=== PATIENT | male | born 1975 | race Caucasian/White ===

== ENCOUNTER 2022-01-04 07:52 | Outpatient (CLI) | payer OTHER, SELFPAY | END 2022-01-04 07:53 | disposition home or self-care (01) | LOC: AMB 01-22 08:47 | PROVIDERS: PCP Family Medicine; Visit Provider Internal Medicine | DX: S99.911A Unspecified injury of right ankle, initial encounter (principal); W18.2XXA Fall in (into) shower or empty bathtub, initial encounter; Y93.E1 Activity, personal bathing and showering; Y92.002 Bathroom of unspecified non-institutional (private) residence as the place of occurrence of the external cause | CPT/HCPCS: A0425; A0427 ==

== ENCOUNTER 2022-01-04 08:51 | Day surgery (SDC) | payer OTHER, SELFPAY ==
[2022-01-04] VITALS (40 sets, daily range): BP systolic 118–152; BP diastolic 66–99; PULSE 73–105; RESP 16–18; TEMP 36.3–37.2; O2SAT 92–99
--- NOTE | 2022-01-04 09:15 | CRLHL7_ITS ---
For Patients: As a result of the Century Cures Act, medical imaging exams and procedure reports are released immediately into your electronic medical record. You may view this report before your referring provider. If you have questions, please contact your health care provider. INDICATION: Fell this morning. TECHNIQUE: AP and lateral views of the right ankle. COMPARISON: None. FINDINGS: Bimalleolar fracture dislocation. Oblique fracture of the distal fibula and fracture of the posterior malleolus. Medial malleolus apparently intact. Talus dislocated posterior laterally and malleolar fragments displaced along with the talus. IMPRESSION: Bimalleolar fracture dislocation, as above. Dictated by Simone Thrasher MD @ 01/04/2022 10:08:41 AM (Electronically Signed)
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
[2022-01-04] MEDS: 0.9 % SODIUM CHLORIDE 1000 ml 1,000 ML IV (09:31)
[2022-01-04] MEDS: HYDROmorphone 0.5 mg/0.5 ml inj IVP (09:31)
[2022-01-04] MEDS: ONDANSETRON 2 MG/ML inj 4 MG IVP (09:31)
[2022-01-04] MEDS: MORPHINE 10 MG/ML inj 4 MG IVP (10:18)
[2022-01-04] MEDS: fentaNYL 100 MCG/2 ML inj IVP (11:30)
--- NOTE | 2022-01-04 11:39 | ED.NURSE ---
Auto Parts Clerk assisted MD with splinting pt's R ankle. Pt tolerated procedure with apparent discomfort.
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
--- NOTE | 2022-01-04 12:47 | CRLHL7_ITS ---
For Patients: As a result of the Century Cures Act, medical imaging exams and procedure reports are released immediately into your electronic medical record. You may view this report before your referring provider. If you have questions, please contact your health care provider. INDICATION: Post reduction. TECHNIQUE: AP and lateral views of the right ankle. COMPARISON: X-rays performed right ankle x-rays performed earlier today. FINDINGS: Unchanged bimalleolar fracture dislocation. Talus and malleolar fragments displaced posteriorly with respect to the tibia and fibula. Fiberglass splint in place. IMPRESSION: Unchanged bimalleolar fracture dislocation. Dictated by Simone Thrasher MD @ 01/04/2022 1:12:42 PM (Electronically Signed)
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
[2022-01-04 13:09] LABS: PCR FLU A Negative PCR FLU A (Negative); PCR FLU B Negative PCR FLU B (Negative); PCR RSV Negative PCR RSV (Negative)
[2022-01-04 13:15] LABS: SARS PCR* Negative SARS-CoV-2 (Negative)
--- NOTE | 2022-01-04 13:26 | CRLHL7_ITS ---
For Patients: As a result of the Cures Act, medical imaging exams and procedure reports are released immediately into your electronic medical record. You may view this report before your referring provider. If you have questions, please contact your health care provider. Indication: Right ankle fracture Technique: Three fluoroscopic images of the right ankle. Fluoroscopic time 99.1 seconds. IMPRESSION: Fluoroscopic guidance for open reduction internal fixation of distal fibular fracture and fixation across the syndesmosis. Dictated by Lazaro Tipton MD @ 01/05/2022 8:40:22 PM (Electronically Signed)
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
[2022-01-04] MEDS: LACTATED RINGERS 1000 ML 1,000 ML 100 ML IV (13:50)
[2022-01-04] MEDS: CEFAZOLIN 2 GM in 0.9 % SODIUM CHLORIDE Mini-bag 100 ML IVPB (14:05)
--- NOTE | 2022-01-04 15:11 | W.PM.NB ---
Nerve Block Nerve Block Time Seen by Provider: 14:00 Date Seen: 01/04/22 Type of block requested by surgeon for post-operative analgesia: adductor canal Side: right Time out performed: Yes Verification of patient name: Yes Verification of date of : Yes Site marking: site marked Name of person performing procedure: Ramone Barone Continuous monitoring Was continuous monitoring of O2 sat, B/P, school lunch monitor, recorded every 15 minutes?: Yes Procedure Checklist: sterile prep, needles and gloves Ultrasound guided. Images saved: Yes Medications given in 5ml increments after negative aspiration: Ropivicaine %: 0.5 mL: 15 Needle gauge: 20 Decadron (mg): 10 Precedex (mcg): 25 Patient tolerated procedure well: Yes Additional comments: injected in 5ml increments after negative aspiration Block Charges Block Charge (with Pro Fee): Femoral Nerve Use of Ultrasound Machine for Block: Yes- US Guidance/pain block
--- NOTE | 2022-01-04 15:13 | W.PM.NB ---
Nerve Block Nerve Block Time Seen by Provider: 14:00 Date Seen: 01/04/22 Type of block requested by surgeon for post-operative analgesia: popliteal Side: right Time out performed: Yes Verification of patient name: Yes Verification of date of : Yes Site marking: site marked Name of person performing procedure: Ramone Barone Continuous monitoring Was continuous monitoring of O2 sat, B/P, cardiac technologist, recorded every 15 minutes?: Yes Procedure Checklist: sterile prep, needles and gloves Ultrasound guided. Images saved: Yes Medications given in 5ml increments after negative aspiration: Ropivicaine %: 0.5 mL: 15 Needle gauge: 20 Patient tolerated procedure well: Yes Block Charges Block Charge (with Pro Fee): Sciatic Nerve Use of Ultrasound Machine for Block: Yes- US Guidance/pain block
--- NOTE | 2022-01-04 15:15 | PM.ORPRC ---
Procedure Note Date of procedure: 01/04/22 Procedure: PREOPERATIVE DIAGNOSES: 1. Right ankle trimalleolar equivalent (lateral and posterior malleolar fractures with medial deltoid ligament injury) fracture, closed, acute POSTOPERATIVE DIAGNOSES: 1. Right ankle trimalleolar equivalent (lateral and posterior malleolar fractures with medial deltoid ligament injury) fracture, closed, acute 2. Right ankle syndesmosis disruption/injury/instability NAME OF OPERATION: 1. Right ankle lateral malleolus open reduction with internal fixation (fibulock) 2. Right ankle syndesmosis fixation/stabilization (tightrope) 3. Closed treatment of a closed, acute, Right posterior malleolus fracture 4. 14589 - intraoperative fluoroscopy up to 1 hour. SURGEON: Chele Pelayo MD OPERATING ENGINEER: Deborah Amanda PA-C; Of note, an child welfare assistant was critical for this case to aide in patient positioning, leg manipulation, tissue retraction, closure, & splinting. ANESTHESIA: Spinal plus regional block EBL: 20 mL IMPLANTS: Arthrex fibulock 3.0 mm distal fibular intramedullary nail with 3.5 mm and 3.0 mm cortical nonlocking screws (the more proximal screw was 3.0mm, the more distal was 3.5 mm); and an end cap. TOURNIQUET: None INDICATIONS: The patient is a pleasant 46-year-old male who sustained a right ankle injury in the recent past with difficulty bearing weight. Workup included xrays which revealed an unstable ankle fracture as noted above. Given these findings, surgery was recommended to stablize the ankle. FINDINGS: Closed, comminuted, displaced trimalleolar equivalent ankle fractures with good bone quality. The syndesmosis was also found to be unstable after fixation of the lateral malleolus. There was edematous tissue throughout the ankle which was moderate. PROCEDURE: Following a thorough discussion of risks, benefits, and alternatives, consent was obtained and the right ankle was marked. The patient was brought to the operating room and placed supine on the operating table. Induction of anesthesia was undertaken. Appropriate time out was performed identifying proper patient, site and procedure. 2 g IV Ancef was administered within 1 hour of incision preoperatively. The right lower extremity was prepped and draped in the appropriate sterile fashion using ChloraPrep. The limb was exsanguinated and the tourniquet inflated. A lateral x-ray helped us with the general alignment of where the guide pin would track. This was drawn on the skin for future reference. We then entered the distal fibula with a guide pin at the fibular tip according to the technique guide. It was passed into the fibula and after confirming on both AP and lateral fluoroscopic images, it was found to pass up the fibula approximately 130+ mm. The fracture was held reduced with fingers and clamp throughout the reaming to maintain its reduced position. The distal portion of the fibula was then reamed with the opening Reamer, followed by the 3.2 mm Reamer up the fibular diaphysis. The canal was very tight, and thus we progressed slowly and in the toggle fashion so as not to break through the fibula. After proper reaming, the nail was placed. The proximal fins were engaged with the torque limiting screwdriver. Distal interlocking screws were then placed from lateral to medial being cautious not to allow them to penetrate the medial fibular cortex. These had excellent purchase and were necessary given her frail bone quality. Finally, the end cap was placed and confirmed on AP and lateral views to be in appropriate position. Following securing of the lateral malleolus, the syndesmosis was stressed. The medial clear space still did widen moderately. As such, we elected to apply a syndesmosis tight rope. A guide pin was 1st drilled through the lateral fibula the, nail, and through the tibia exiting the medial distal tibia. It remained parallel to the joint in approximately 1.5-2 cm proximal to the joint. This was over drilled, a tight rope past, the medial button flipped, and the knotless mechanism tightened/engaged. The syndesmosis was restore rest and found to be stable. C-arm fluoroscopic imaging was utilized throughout the case to aid in understanding of the fracture pattern, fixation, and this is interpreted real time during the procedure by me, personally. At this stage, the wound was thoroughly irrigated with normal saline. Closure was performed with 3-0 / 4-0 Vicryl and monocryl, respectively for subcutaneous and subcuticular closure. Dressings were applied and a sugar-tong splint was applied. The patient was awoken from anesthesia and transferred to the PACU in stable condition. PLAN: 1. Elevate operative extremity. 2. Encouraged ice. 3. Percocet for pain as needed. 4. Follow up with PA visit in 2-3 weeks for wound check and splint removal. Transition to CAM boot. Advance weight-bearing slowly over the next 1-2 weeks as tolerated 5. Toe-touch weight-bearing operative lower extremity
--- NOTE | 2022-01-04 15:44 | W.ANESCHARGE ---
Anesthesia Charges Start Date/Time Anesthesia Start Date: 01/04/22 Anesthesia Start Time: 13:50 Stop Date/Time Anesthesia Stop Date: 01/04/22 Anesthesia Stop Time: 15:45 Summary Emergency: Yes
[2022-01-04] MEDS: LACTATED RINGERS 1000 ML 1,000 ML 75 ML IV (16:25)
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
[2022-01-04 18:45] LABS: HCO3 VBG 27 mmol/L (21-28); Lactate* 1.4 mmol/L (0.5-1.9); PCO2 VBG 43 mmHG (40-50); pH VBG 7.395 (7.32-7.43)
[2022-01-04 18:46] LABS: Hematocrit 31.5 % (37.0-53.0); Hemoglobin* 10.6 gm/dL (13.5-17.5); Mean Corpuscular HGB Conc 34 gm/dL (32-36); Mean Corpuscular Hemoglobin 29 pg (26-34); Mean Corpuscular Volume 88 fL (80-100); Platelet Count* 259 K/uL (140-440); White Blood Count* 13.21 K/uL (4.50-11.00)
[2022-01-04 18:48] LABS: Slide Review Reflex No
[2022-01-04 19:03] LABS: Albumin* 4.9 g/dL (3.3-5.0); Chloride* 102 mmol/L (96-114); Sodium* 138 mmol/L (135-149)
[2022-01-04 19:04] LABS: Potassium* 4.4 mmol/L (3.6-5.1)
[2022-01-04 19:06] LABS: Aspartate Amino Transferase* 30 U/L (12-35); Bilirubin Total* 1.2 mg/dL (0.1-1.5); Blood Urea Nitrogen* 18 mg/dL (5-24); Carbon Dioxide* 25 mmol/L (20-32); Creatinine* 0.8 mg/dL (0.5-1.5); Estimated Glomerular Filt Rate 111 ml/min
[2022-01-04 19:07] LABS: Alanine Aminotransferase* 47 U/L (4-50); Alkaline Phosphatase* 99 U/L (40-150); Calcium* 9.2 mg/dL (8.4-10.6); Glucose* 135 mg/dL (60-115); INR 1.02 (0.91-1.10)
[2022-01-04] MEDS: ACETAMINOPHEN 325 MG TABLET PO (19:32)
[2022-01-04] MEDS: SENNOSIDES 1 TAB TABLET 2 TAB PO (20:44)
[2022-01-05] MEDS: ACETAMINOPHEN 325 MG TABLET PO (02:13)
[2022-01-05 02:26] VITALS: BP 134/85; PULSE 79; RESP 18; TEMP 36.4; O2SAT 96
[2022-01-05] MEDS: OXYCODONE 5 MG TABLET PO ×3 (05:07→14:35)
[2022-01-05 06:00] VITALS: BP 134/86; BP 141/104; PULSE 78; PULSE 89
--- NOTE | 2022-01-05 07:39 | PC.NURSE ---
pt up to floor from pacu at 1615. RLE numb. c/o pain in left thigh from previous injury, oxy given. Bedrest. Pt able to dangle at side of bed for ortho BPs with great discomfort. using urinal indep.
[2022-01-05 08:00] VITALS: BP 143/96; PULSE 74; RESP 16; TEMP 36.6; O2SAT 95
[2022-01-05 09:17] VITALS: TEMP 36.1
[2022-01-05] MEDS: ACETAMINOPHEN 325 MG TABLET 650 MG PO ×2 (09:17→14:35)
--- NOTE | 2022-01-05 10:35 | ONC.NURNOTE ---
Alert and oriented. vs wnl. excep a bit elevated bp and heart rate when up with walker. [140/90- 90] cody walker better than crutches per PT. orthostatics done by PT. same bp and pulse sitting and standing. cody po. denies nausea or emesis. states passing some flatus. abd soft. hypo bs. good u/o. no blood. LT upper leg bruising and circum. done at 0600. no increase in swelling or pain. pt will ask DrSoniya about using heat. advised him to ask md before using heat. RT LE numb foot warm and good color with poss. pedal pulse. pain controlled with oxy and tylenol. plan to go home with walker and . RLE elevated on 2 pillows above heart and ice pack.
[2022-01-05 13:30] VITALS: BP 150/90; PULSE 77; RESP 16; TEMP 36.1; O2SAT 98
--- NOTE | 2022-01-05 14:03 | ONC.NURNOTE ---
Jordy placed on lt LE. to have off at night. wide arelis wrap around lt thigh after lotioning upper leg. pt successfully did on his own. pt denies pain. discharge instructions given. new ice pack to rt LE. tylenol and oxy 10mg given before discharge. good color RLE. poss pedal pulse and warm. pt successfully using walker. TTWB left. NWB rt. new ice to rt ankle. elevated on 2 pillows above heart.
[2022-01-05 14:35] VITALS: TEMP 36.1
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
== END 2022-01-05 15:00 | disposition home or self-care (01) ==
LOC: ED 10:20 → MEDSURG 13:24 → OR 18:36 → MEDSURG 18:38
PROVIDERS: Orthopaedic Surgery Sports Medicine; Emergency Provider Emergency Medicine Emergency Medical Services; PCP Family Medicine; Visit Provider Family Medicine
PROC: (CPT 27814; principal; 2022-01-04 13:45)
DX: S82.841A Displaced bimalleolar fracture of right lower leg, initial encounter for closed fracture (principal); W18.30XA Fall on same level, unspecified, initial encounter; Y92.003 Bedroom of unspecified non-institutional (private) residence as the place of occurrence of the external cause; G89.18 Other acute postprocedural pain; M25.571 Pain in right ankle and joints of right foot; M79.652 Pain in left thigh; R55 Syncope and collapse; S75 Injury of blood vessels at hip and thigh level; S70.12XS Contusion of left thigh, sequela; V86.0 Driver of special all-terrain or other off-road motor vehicle injured in traffic accident; K59.00 Constipation, unspecified; D62 Acute posthemorrhagic anemia
CPT/HCPCS: 27814; 27829; 1480; 29515; 36415; 64445; 64447; 73600; 73610; 76000; 76942; 80053; 82803; 83605; 85027; 85610; 87502; 87634; 87635; 93005; 93971; 97116; 97162; 97165; 97530; 97535; 99140; 99285; A9270; C1713; J0690; J1100; J1170; J2250; J2270; J2400; J2405; J2704; J2795; J3010; J7030; J7120

== ENCOUNTER 2022-01-27 11:51 | Outpatient (CLI) | payer OTHER, SELFPAY ==
[2022-01-28 00:10] LABS: PSA Screen* 0.22 ng/mL (0.10-4.00)
== END 2022-01-27 11:52 | disposition home or self-care (01) ==
LOC: LKVREF 11:52
PROVIDERS: PCP Family Medicine; Visit Provider Family Medicine
DX: Z12.5 Encounter for screening for malignant neoplasm of prostate (principal); D64.9 Anemia, unspecified
CPT/HCPCS: 84153

== ENCOUNTER 2022-02-12 13:45 | Outpatient (RCR) | payer OTHER, SELFPAY | END 2022-09-04 23:59 | disposition home or self-care (01) | PROVIDERS: PCP Family Medicine; Visit Provider Physician Assistant Surgical | DX: S82.841D Displaced bimalleolar fracture of right lower leg, subsequent encounter for closed fracture with routine healing (principal); Z51.89 Encounter for other specified aftercare | CPT/HCPCS: 97110; 97116; 97140; 97162; 97530 ==

== ENCOUNTER 2022-07-29 14:18 | Outpatient (CLI) | payer OTHER, SELFPAY | END 2022-07-29 14:19 | disposition home or self-care (01) | PROVIDERS: PCP Family Medicine; Visit Provider Family Medicine | DX: E78.00 Pure hypercholesterolemia, unspecified (principal); D64.9 Anemia, unspecified; R03.0 Elevated blood-pressure reading, without diagnosis of hypertension | CPT/HCPCS: 80053; 80061 ==

== ENCOUNTER 2022-09-02 09:26 | Outpatient (CLI) | payer OTHER, SELFPAY ==
--- NOTE | 2022-09-02 09:57 | P.ANHP_ITS ---
HPI - Pre-Anesthesia History of Present Illness Time Seen by Provider: 10:20 Date Seen: 09/02/22 Date of service: 09/02/22 Source: patient and old records reviewed Review of Systems Status of ROS Reports: 6 or more systems reviewed and unremarkable except as noted in History and below [facility] Medical History (Updated 08/26/22 @ 10:33 by Ivory Kruger) Hypercholesteremia ?E78.00 - Pure hypercholesterolemia, unspecified (ICD-10) Hematoma of left thigh ?S70.12XA - Contusion of left thigh, initial encounter (ICD-10) Inadequate pain control ?R52 - Pain, unspecified (ICD-10) Constipation ?K59.00 - Constipation, unspecified (ICD-10) Anemia ?D64.9 - Anemia, unspecified (ICD-10) Traumatic hematoma ?T14.8XXA - Other injury of unspecified body region, initial encounter (ICD- 10) Bimalleolar fracture of right ankle ?S82.841A - Displaced bimalleolar fracture of right lower leg, initial encounter for closed fracture (ICD-10) Surgical History (Updated 08/26/22 @ 10:35 by Ivory Kruger) Status post open reduction with internal fixation (ORIF) of fracture of ankle (01/04/22) ?Z98.890 - Other specified postprocedural states (ICD-10) ?Z87.81 - Personal history of (healed) traumatic fracture (ICD-10) Social History (Reviewed 08/26/22 @ 10:13 by Aparna Alva ~ [facility] [place], [facility]) Smoking Status: Never smoker Little interest or pleasure in doing things: not at all Feeling down, depressed, or hopeless: not at all Meds Home Medications and Allergies Home Medications Medication Instructions Recorded Confirmed Type clindamycin phosphate 1 % lotion 1 applic topical BID 01/29/22 08/26/22 History diclofenac sodium 3 % topical gel 1 applic topical BID 01/29/22 08/26/22 History ezetimibe 10 mg tablet 10 mg PO QDAY 01/29/22 08/26/22 History arginine (L-arginine) 500 mg tablet 800 mg PO QDAY 07/29/22 08/26/22 History coenzyme Q10 10 mg capsule 10 mg PO ONCE 07/29/22 08/26/22 History minoxidil 5 % topical foam ea topical 07/29/22 08/26/22 History (Rogaine) multivitamin (One Daily 1 tab PO QAM 07/29/22 08/26/22 History Multivitamin tablet) omega-3 417 mg-dha 120 mg-epa-276 cap PO 07/29/22 08/26/22 History mg-fish oil 600 mg-tumeric capsule omega-3 fatty acids-fish oil 360 1 cap PO QDAY 07/29/22 08/26/22 History mg-1,200 mg capsule (Fish Oil) red yeast rice 600 mg capsule 600 mg PO QDAY 07/29/22 08/26/22 History Allergies Allergy/AdvReac Type Severity Reaction Status Date / Time No Known Drug Allergies Allergy Verified 08/26/22 10:16 Exam Const Documenting provider has reviewed patient's vital signs: yes Common normals: no apparent distress, oriented x3, healthy appearing, alert and well nourished General appearance: cooperative and comfortable Orientation/consciousness: Yes awake HENMT Common normals: normocephalic Head and scalp: normocephalic Neck & C-Spine Common normals: full ROM Chest Chest: symmetrical chest wall rise Resp Common normals: normal respiratory effort, no retractions, no use of accessory muscles and clear to auscultation bilaterally Auscultation: clear to auscultation bilaterally Cardio Common normals: regular rate, regular rhythm, S1 normal heart sound, S2 normal heart sound and no murmurs Rate: regular rate Rhythm: regular rhythm Heart sounds: S1 normal and S2 normal Neuro Common normals: oriented x3 Sensorium/orientation: awake and alert Assessment and Plan Assessment and plan (1) Colon cancer screening: Status: Acute Plan ok to proceed with sedation for colonoscopy
--- NOTE | 2022-09-02 11:45 | W.ANESCHARGE ---
Anesthesia Charges Start Date/Time Anesthesia Start Date: 09/02/22 Anesthesia Start Time: 11:15 Stop Date/Time Anesthesia Stop Date: 09/02/22 Anesthesia Stop Time: 11:43
== END 2022-09-02 09:27 | disposition home or self-care (01) ==
LOC: OP CLINIC 09:27
PROVIDERS: PCP Family Medicine; Visit Provider Surgery
DX: Z12.11 Encounter for screening for malignant neoplasm of colon (principal); K64.9 Unspecified hemorrhoids; K63.5 Polyp of colon; K57.30 Diverticulosis of large intestine without perforation or abscess without bleeding; Z83.71 Family history of colonic polyps
CPT/HCPCS: 45385; 811; 88305; J2704

== ENCOUNTER 2022-10-23 08:34 | Outpatient (CLI) | payer OTHER, SELFPAY | END 2022-10-23 08:35 | disposition home or self-care (01) | LOC: NFLDREF 10-24 07:49 | PROVIDERS: PCP Family Medicine; Referring Provider Family Medicine; Visit Provider Family Medicine | DX: E78.00 Pure hypercholesterolemia, unspecified (principal) | CPT/HCPCS: 80061; 80076 ==

== ENCOUNTER 2023-06-26 16:13 | Outpatient (CLI) | payer OTHER, SELFPAY | END 2023-06-26 16:14 | disposition home or self-care (01) | PROVIDERS: PCP Family Medicine; Visit Provider Family Medicine | DX: R61 Generalized hyperhidrosis (principal); R63.5 Abnormal weight gain; Z13.29 Encounter for screening for other suspected endocrine disorder; Z13.818 Encounter for screening for other digestive system disorders | CPT/HCPCS: 80076; 84403; 84443 ==

== ENCOUNTER 2023-06-30 08:33 | Outpatient (CLI) | payer OTHER, SELFPAY | END 2023-06-30 08:34 | disposition home or self-care (01) | LOC: NFLDREF 07-02 08:45 | PROVIDERS: PCP Family Medicine; Referring Provider Family Medicine; Visit Provider Family Medicine | DX: E78.00 Pure hypercholesterolemia, unspecified (principal); R74.8 Abnormal levels of other serum enzymes; R79.89 Other specified abnormal findings of blood chemistry | CPT/HCPCS: 80061; 80076; 84270; 84402; 84403 ==

== ENCOUNTER 2024-08-11 09:50 | Outpatient (CLI) | payer OTHER, SELFPAY | END 2024-08-11 09:51 | disposition home or self-care (01) | LOC: NFLDREF 08-15 14:59 | PROVIDERS: PCP Family Medicine; Referring Provider Family Medicine; Visit Provider Family Medicine | DX: Z00.00 Encounter for general adult medical examination without abnormal findings (principal); R79.89 Other specified abnormal findings of blood chemistry; E78.00 Pure hypercholesterolemia, unspecified; R03.0 Elevated blood-pressure reading, without diagnosis of hypertension; Z13.6 Encounter for screening for cardiovascular disorders; Z12.5 Encounter for screening for malignant neoplasm of prostate; Z13.1 Encounter for screening for diabetes mellitus | CPT/HCPCS: 80053; 80061 ==